=== PATIENT | male | born 1955 | race Caucasian/White ===

== ENCOUNTER → 2016-06-19 | Outpatient (CLI) | payer OTHER, MEDICARE ==
[~2016-06-19] MED LIST: COLACE 100MG C100 MG PO; CORDARONE 200M200 MG PO; ELIQUIS 5 MG TAB5 MG PO; KLONOPIN TAB 00.5 MG PO; LIPITOR TAB 2020 MG PO; LISINOPRIL2.5 MG PO; METOLAZONE2.5 MG PO; MIRALAX PACK 171 PKT PO; NITROSTAT 0.40.4 MG SL
== END ==
LOC: CT 15:10
DX: M54.16 Radiculopathy, lumbar region (principal); N18.9 Chronic kidney disease, unspecified; M51.37 Other intervertebral disc degeneration, lumbosacral region
CPT/HCPCS: 72131

== ENCOUNTER → 2016-07-31 | Outpatient (CLI) | payer MEDICARE | LOC: LAB 14:51 | DX: J44.9 Chronic obstructive pulmonary disease, unspecified (principal); R06.02 Shortness of breath; Z79.899 Other long term (current) drug therapy; E78.5 Hyperlipidemia, unspecified; I10 Essential (primary) hypertension; I25.10 Atherosclerotic heart disease of native coronary artery without angina pectoris; I42.0 Dilated cardiomyopathy; I48.91 Unspecified atrial fibrillation; R06.00 Dyspnea, unspecified; I51.7 Cardiomegaly; I87.8 Other specified disorders of veins | CPT/HCPCS: 36415; 71020; 80076; 84439; 84443; 84481 ==

== ENCOUNTER 2016-08-09 11:11 | Inpatient (IN) | payer MEDICARE ==
[~2016-08-09] VITALS: Ht 188 cm; Wt 131.1 kg
[2016-08-09 13:13] LABS: HEMOGLOBIN 14.4 gm/dl (14.0-17.5); RED BLOOD COUNT 4.54 M/UL (4.20-5.50); WHITE BLOOD COUNT 6.7 K/UL (4.5-11.0)
[2016-08-09 14:22] LABS: BUN/CREATININE RATIO 21 (0-10)
[2016-08-10] MEDS ORDERED: KLONOPIN TAB 00.5 MG PO (00:31)
[2016-08-10] MEDS ORDERED: LISINOPRIL2.5 MG PO (00:31)
[2016-08-10] MEDS ORDERED: NITROSTAT 0.40.4 MG SL (00:32)
[2016-08-10] MEDS ORDERED: CORDARONE 200M200 MG PO (00:32)
[2016-08-10] MEDS ORDERED: ELIQUIS 5 MG TAB5 MG PO (00:37)
[2016-08-10] MEDS ORDERED: LIPITOR TAB 2020 MG PO (00:38)
[2016-08-10 02:26] LABS: HEMOGLOBIN 13.3 gm/dl (14.0-17.5); RED BLOOD COUNT 4.26 M/UL (4.20-5.50); WHITE BLOOD COUNT 5.1 K/UL (4.5-11.0)
[2016-08-10 02:47] LABS: BUN/CREATININE RATIO 20 (0-10)
[2016-08-10] MEDS ORDERED: METOLAZONE2.5 MG PO (10:48)
[2016-08-11 05:28] LABS: BUN/CREATININE RATIO 17 (0-10)
[2016-08-11] MEDS ORDERED: METOLAZONE2.5 MG PO (15:54)
[2016-10-12] MEDS ORDERED: COLACE 100MG C100 MG PO (10:00)
[2016-10-12] MEDS ORDERED: MIRALAX PACK 171 PKT PO (10:00)
== END 2016-08-11 17:21 | disposition home or self-care (01) | DRG 291 ==
LOC: ER1 11:11 → M/S 16:19 → ZEROF 16:19 → M/S 19:31
PROVIDERS: Emergency Medicine; Internal Medicine Interventional Cardiology; ADMIT Internal Medicine
DX: I13.0 Hypertensive heart and chronic kidney disease with heart failure and stage 1 through stage 4 chronic kidney disease, or unspecified chronic kidney disease (principal); I50.23 Acute on chronic systolic (congestive) heart failure; K65.4 Sclerosing mesenteritis; N18.2 Chronic kidney disease, stage 2 (mild); I42.0 Dilated cardiomyopathy; D69.6 Thrombocytopenia, unspecified; I27.2 Other secondary pulmonary hypertension; I08.1 Rheumatic disorders of both mitral and tricuspid valves; I48.91 Unspecified atrial fibrillation; E78.5 Hyperlipidemia, unspecified; I20.9 Angina pectoris, unspecified; J44.9 Chronic obstructive pulmonary disease, unspecified; D64.9 Anemia, unspecified; E66.01 Morbid (severe) obesity due to excess calories; E80.6 Other disorders of bilirubin metabolism; F17.210 Nicotine dependence, cigarettes, uncomplicated; Z95.810 Presence of automatic (implantable) cardiac defibrillator; Z86.711 Personal history of pulmonary embolism; Z86.718 Personal history of other venous thrombosis and embolism; Z72.3 Lack of physical exercise; Z68.35 Body mass index [BMI] 35.0-35.9, adult; Z79.01 Long term (current) use of anticoagulants; Z79.899 Other long term (current) drug therapy; Z88.8 Allergy status to other drugs, medicaments and biological substances; Z90.49 Acquired absence of other specified parts of digestive tract; Z98.890 Other specified postprocedural states; Z82.49 Family history of ischemic heart disease and other diseases of the circulatory system; Z80.42 Family history of malignant neoplasm of prostate
CPT/HCPCS: ECHO; 36415; 71020; 80048; 80053; 80061; 82550; 82553; 83735; 83874; 83880; 84484; 85025; 85027; 93005; 93306; 94640; 94664; 99285

== ENCOUNTER → 2016-08-15 | Outpatient (CLI) | payer MEDICARE | LOC: HEART 5 08:36 | DX: R06.02 Shortness of breath (principal); J44.9 Chronic obstructive pulmonary disease, unspecified; Z79.899 Other long term (current) drug therapy | CPT/HCPCS: 94060; 94729 ==

== ENCOUNTER → 2016-08-23 | Outpatient (CLI) | payer MEDICARE | LOC: CT 09:00 → US 14:28 | DX: I48.92 Unspecified atrial flutter (principal); I42.0 Dilated cardiomyopathy; Z86.711 Personal history of pulmonary embolism; R06.02 Shortness of breath; Z95.810 Presence of automatic (implantable) cardiac defibrillator; J90 Pleural effusion, not elsewhere classified; J98.11 Atelectasis | CPT/HCPCS: 71250; 93970 ==

== ENCOUNTER → 2016-09-08 | Outpatient (CLI) | payer MEDICARE | LOC: CT 07:36 | DX: K59.00 Constipation, unspecified (principal); K63.89 Other specified diseases of intestine; J90 Pleural effusion, not elsewhere classified; I67.2 Cerebral atherosclerosis; M46.96 Unspecified inflammatory spondylopathy, lumbar region | CPT/HCPCS: 74170; J7050; Q9965 ==